=== PATIENT | male | born 1955 | race Caucasian/White ===

== ENCOUNTER 2021-03-21 13:36 | Outpatient (CLI) | payer MEDICARE ==
[~2021-03-21 13:36] MED LIST: Iopamidol 370 76% 100 ML VIAL ONE
[2021-03-21 14:04] LABS: Estimated GFR-MDRD - POC Greater than 90
== END 2021-03-21 13:37 | disposition home or self-care (01) ==
LOC: BICCT 13:36 → CT 13:37
PROVIDERS: ATTEND Physician Assistant Medical
DX: K86.81 Exocrine pancreatic insufficiency (principal); J98.4 Other disorders of lung; I70.0 Atherosclerosis of aorta; I25.10 Atherosclerotic heart disease of native coronary artery without angina pectoris; I70.8 Atherosclerosis of other arteries
CPT/HCPCS: 74170; 82565; Q9967

== ENCOUNTER 2022-03-30 10:46 | Outpatient (CLI) | payer MEDICARE ==
[2022-03-30] MEDS ORDERED: ISOVUE-370 76% 1 ML ONE (15:18)
== END 2022-03-30 10:47 | disposition home or self-care (01) ==
LOC: BICCT 10:46
PROVIDERS: ATTEND Physician Assistant Medical
DX: R10.9 Unspecified abdominal pain (principal); R61 Generalized hyperhidrosis; M54.50 Low back pain, unspecified; K52.9 Noninfective gastroenteritis and colitis, unspecified
CPT/HCPCS: 74177; 82565

== ENCOUNTER 2022-03-31 09:58 | Outpatient (CLI) | payer MEDICARE | END 2022-03-31 09:59 | disposition home or self-care (01) | LOC: DTY/OP 09:58 | PROVIDERS: ATTEND Physician Assistant Medical | DX: K58.0 Irritable bowel syndrome with diarrhea (principal); K86.81 Exocrine pancreatic insufficiency | CPT/HCPCS: 97802 ==

== ENCOUNTER 2023-08-09 13:53 | Outpatient (CLI) | payer MEDICARE | END 2023-08-09 13:54 | disposition home or self-care (01) | LOC: ULT 13:53 | PROVIDERS: ATTEND Psychiatry & Neurology Neurology | DX: R42 Dizziness and giddiness (principal) | CPT/HCPCS: 93880 ==

== ENCOUNTER 2024-04-25 12:33 | Outpatient (CLI) | payer MEDICARE ==
[2024-04-25] MEDS ORDERED: Sincalide 5 MCG VIAL ONE (14:56)
[2024-04-25] MEDS ORDERED: Sterile Water 10 ML ONE (14:56)
[2024-04-25] MEDS ORDERED: Bacteriostatic Normal Saline 30 ML VIAL ONE (14:56)
== END 2024-04-25 12:34 | disposition home or self-care (01) ==
LOC: NM 12:33
PROVIDERS: ATTEND Physician Assistant Medical
DX: K21.9 Gastro-esophageal reflux disease without esophagitis (principal); K52.9 Noninfective gastroenteritis and colitis, unspecified; K86.81 Exocrine pancreatic insufficiency; R14.3 Flatulence
CPT/HCPCS: 78227; A9537; J2805